=== PATIENT | female | born 1995 | race Caucasian/White ===

== ENCOUNTER 2021-08-04 11:46 | Emergency (ER) | payer BC ==
[~2021-08-04] VITALS: Ht 162.6 cm; Wt 70.3 kg
[2021-08-04] MEDS ORDERED: SYNTHROID50 MCG PO (12:33)
[2021-08-04] MEDS ORDERED: LEXAPRO20 MG PO (12:33)
== END 2021-08-04 13:04 | disposition home or self-care (01) ==
LOC: ED 11:46
DX: J02.9 Acute pharyngitis, unspecified (principal); E06.3 Autoimmune thyroiditis; Z79.899 Other long term (current) drug therapy
CPT/HCPCS: 87081; 99283

== ENCOUNTER 2021-08-07 05:38 | Emergency (ER) | payer BC ==
[~2021-08-07] VITALS: Ht 162.6 cm; Wt 70.3 kg
[~2021-08-07 05:38] MED LIST: LEXAPRO20 MG PO; SYNTHROID50 MCG PO
--- OUTSIDE RECORDS SUMMARY | 2021-08-07 05:46 | XMS ---
PreManage Notification: RAVI GREGORIO Security Automatic Stacker Events No recent Security Events currently on file CRITERIA MET - [facility] - 2 Visits in 30 Days CARE PROVIDERS There are no care providers on record at this time. Kendal has no Care Guidelines for this patient. [facility]ISIT COUNT (12 MO.) [address] [facility] NOTE: Visits indicate total known visits. ED/C VISIT TRACKING (12 MO.) 08/07/2021 05:38 [facility] COMPLAINT: - COLD SYMPTOMS 08/04/2021 11:47 [facility] TYPE: Emergency COMPLAINT: - SORE THROAT, EARS ACHING INPATIENT VISIT TRACKING (12 MO.) No inpatient visits to display in this time frame [email or web address]
[2021-08-07] MEDS ORDERED: DOXYCYCLINE HY100 MG PO (07:05)
== END 2021-08-07 07:20 | disposition home or self-care (01) ==
LOC: ED 05:38
DX: J32.9 Chronic sinusitis, unspecified (principal); J98.8 Other specified respiratory disorders; B97.89 Other viral agents as the cause of diseases classified elsewhere; E06.3 Autoimmune thyroiditis; Z20.822 Contact with and (suspected) exposure to COVID-19; Z79.899 Other long term (current) drug therapy
CPT/HCPCS: 99283; C9803; U0003